=== PATIENT | female | born 1935 | race Caucasian/White ===

== ENCOUNTER → 2016-06-02 | Outpatient (CLI) | payer MEDICARE | LOC: GMAM 11:06 | PROVIDERS: ATTEND Family Medicine | DX: D64.9 Anemia, unspecified (principal); D51.9 Vitamin B12 deficiency anemia, unspecified; R31.1 Benign essential microscopic hematuria ==

== ENCOUNTER → 2016-08-22 | Outpatient (CLI) | payer MEDICARE ==
--- NOTE | 2016-08-23 07:26 | CT ---
Procedure: CT CHEST WITHOUT IV CONTRAST Exam Date: 08/22/2016 Ordering Provider: Enrico Roque Clinical Indication: DYSPNEA Comparison: 06/05/2016 chest x-ray TECHNIQUE: 5 mm images were taken through the chest without intravenous contrast material. Coronal and sagittal reformatted images were generated. This exam was performed according to our departmental dose optimization program which includes use of automated exposure control, adjustment of the mA and/or kV according to patient size and/or use of iterative reconstruction technique. FINDINGS: Lines/Tubes/Devices: None Lungs and large airways: Central airways are patent. No focal lung consolidation. No suspicious lung lesions. Scarring in the lingula and both lower lobes. Pleura: No pleural effusion. No pneumothorax. Mediastinum and neeraj: No lymphadenopathy. Heart and great vessels: Heart is not enlarged. No pericardial effusion. No aortic aneurysm. Aortic and coronary artery calcifications. Chest wall, lower neck, axillae: No axillary lymphadenopathy. Unremarkable thyroid. Upper abdomen: No acute abnormalities in the visualized upper abdomen. Hepatic cysts. Bones: Nonacute. Dextrocurvature of the thoracic spine. IMPRESSION: 1. No acute abnormalities in the chest. 2. Aortic and coronary artery calcifications. Electronically signed by: Tim Long MD 08/23/2016 7:26 AM CDT
== END | disposition home or self-care (01) ==
LOC: CT 09:18
PROVIDERS: ATTEND Internal Medicine Pulmonary Disease
DX: R06.00 Dyspnea, unspecified (principal); R06.83 Snoring; G47.11 Idiopathic hypersomnia with long sleep time

== ENCOUNTER → 2016-08-28 | Outpatient (CLI) | payer MEDICARE | END | disposition home or self-care (01) | LOC: SL 16:53 | PROVIDERS: ATTEND Internal Medicine Pulmonary Disease | DX: G47.30 Sleep apnea, unspecified (principal) ==

== ENCOUNTER → 2016-10-20 | Outpatient (CLI) | payer MEDICARE ==
--- NOTE | 2016-10-20 15:20 | MRI ---
EXAM DESCRIPTION: MRI right knee CLINICAL HISTORY: Right knee pain medially. Acute onset medial knee pain one week ago. No trauma COMPARISON: None. TECHNIQUE: Multiplanar, multisequence MR images of the right knee FINDINGS: Complex tear of the medial meniscus involving the body and posterior horn with involvement of both superior and inferior articular surfaces along the body and superior tubular surface along the posterior horn. Mild subluxation into the superior medial gutter. There is a region of trabecular condensation in the weightbearing femoral epiphysis, linear irregular over about 1.4 x 1.1 cm. Extensive surrounding marrow edema. No abnormality of the subchondral cortex. Diffuse chondral thinning medial femorotibial compartment without chronic osteochondral lesion No lateral meniscal tear or lateral femorotibial chondrosis No high-grade patellofemoral chondrosis or chronic osteochondral lesion ACL, PCL, MCL and fibular collateral ligaments are intact Biceps femoris, popliteus and iliotibial band tendons are normal. Patellar and quadriceps tendons and tendons of the posterior medial knee are intact Moderate joint effusion. Periarticular soft tissue edema. No intra-articular body IMPRESSION: Complex tear posterior horn and body medial meniscus Linear irregular trabecular condensation in the weightbearing femoral condyle epiphysis. The appearance is consistent with stress versus insufficiency fracture. This does not have the characteristic appearance of osteonecrosis. No subchondral cortical abnormality or collapse Electronically signed by: Amrik Marques MD 10/20/2016 3:18 PM CDT
== END | disposition home or self-care (01) ==
LOC: MRI 07:08
PROVIDERS: ATTEND Nurse Practitioner Family
DX: M23.221 Derangement of posterior horn of medial meniscus due to old tear or injury, right knee (principal)

== ENCOUNTER → 2016-10-27 | Outpatient (CLI) | payer MEDICARE | LOC: GMAM 10:11 | PROVIDERS: ATTEND Family Medicine | DX: D51.3 Other dietary vitamin B12 deficiency anemia (principal) ==

== ENCOUNTER → 2016-11-03 | Outpatient (CLI) | payer MEDICARE ==
--- NOTE | 2016-11-03 14:53 | RAD ---
EXAM DESCRIPTION: Femur,Right CLINICAL HISTORY: PAIN IN RT THIGH COMPARISON: None. IMPRESSION: 2 views of the right femur show diffuse osteopenia of the osseous structures with no evidence of acute fracture, focal bone destruction, or joint dislocation. Mild joint space narrowing and sclerotic changes to the superior lateral acetabulum are seen consistent with mild osteoarthritic-type changes. Small osteochondroma of the lateral distal femur is seen. Moderate vascular calcifications are identified. Electronically signed by: Denzel King MD 11/03/2016 2:52 PM CDT
== END | disposition home or self-care (01) ==
LOC: RAD 07:52
PROVIDERS: ATTEND Orthopaedic Surgery
DX: M79.651 Pain in right thigh (principal)

== ENCOUNTER → 2017-02-24 | Outpatient (CLI) | payer MEDICARE | END | disposition home or self-care (01) | LOC: GMAM 12:13 | PROVIDERS: ATTEND Family Medicine | DX: R35.0 Frequency of micturition (principal) ==

== ENCOUNTER → 2017-05-26 | Outpatient (CLI) | payer MEDICARE | LOC: GMAM 11:51 | PROVIDERS: ATTEND Family Medicine | DX: D51.9 Vitamin B12 deficiency anemia, unspecified (principal) ==

== ENCOUNTER → 2017-09-01 | Outpatient (CLI) | payer MEDICARE ==
--- NOTE | 2017-09-02 09:46 | CT ---
EXAM DESCRIPTION: CTA Neck: Computed Tomography. CLINICAL HISTORY: CAROTID ARTERY STENOSIS COMPARISON: Ultrasound carotid duplex and vertebral study 03/07/2013. TECHNIQUE: Spiral, axial 2.5 scans through the neck soft tissues after bolus infusion of IV contrast. Coronal and sagittal 2.0 mm reconstructions. 3D volume rendering images and HD MIP, rotating around the craniocaudal axis. Percentage of stenosis recorded will be based upon NASCET criteria. Total Exam DLP: 737.74 mGy-cm. This exam was performed according to our departmental CT dose-optimization program which includes automated exposure control, adjustment of the mA and/or kV according to patient size and/or use of iterative reconstruction technique; to reduce radiation dose to as low as reasonably achievable (ALARA). FINDINGS: Left common carotid origin adjacent to the right innominate artery origin. Right common carotid origin is unremarkable. Calcification and small ulceration in the anterolateral wall of the proximal ICA. Posterior calcification. 28% diameter stenosis. 22 % diameter stenosis with atherosclerotic calcification 1 cm distally. Minimal calcification distal right common carotid artery and proximal right ICA with less than 10% diameter stenosis. Both vessels demonstrate atherosclerotic calcification in the carotid siphon with almost 55% diameter stenosis on the left and 31% diameter stenosis on the right. Bilateral ICA intracranial bifurcations are unremarkable. No posterior communicating arteries are demonstrated. No aneurysm stenosis mass effect contrast extravasation or vasculitis. Bilateral vertebral arteries with unremarkable origins from the subclavian arteries. Slightly tortuous on the right. Symmetric caliber in the vertebral foramina and in the skull base. Formation of the basilar artery is unremarkable. No significant abnormalities in the major branch vessels originating from the vertebral basilar system. No aneurysm, stenosis, mass effect, or vasculitis Spondylosis in the cervical spine. Left neural foraminal stenosis at C3-4 with facet arthrosis. Bilateral neural foraminal stenosis at C4-5 and borderline canal stenosis. Right neural foraminal stenosis C5-6. Included lung torres bilaterally are unremarkable. Thyroid with uniform enhancement. No soft tissue masses in the neck or significant adenopathy included airway from the nasopharynx to the upper trachea shows no effacement or displacement. Included mastoid air cells and paranasal air cells are unremarkable. Glenny bullosa in the right middle turbinate.. IMPRESSION: 1. 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 22-28% diameter stenosis. Vascular surgical consult is recommended. Almost 55% diameter stenosis in the left carotid siphon. Less diameter stenosis in the proximal right ICA and right carotid siphon. No aneurysm mass effect or midline shift. 2. Vertebrobasilar system is unremarkable. 3. Spondylosis multiple levels of the cervical spine with neural foraminal stenosis. Correlate for radiculopathy. CRITICAL COMMUNICATION: The critical value was discussed directly by phone with Dr. Popeye Louise at approximately 938 hours, on September 02, 2017. Electronically signed by: Anthony Alfonso MD 09/02/2017 9:44 AM CDT
== END ==
LOC: CT 10:00
PROVIDERS: ATTEND Family Medicine
DX: I65.23 Occlusion and stenosis of bilateral carotid arteries (principal)

== ENCOUNTER → 2017-11-02 | Outpatient (CLI) | payer MEDICARE | LOC: GMAM 15:00 | PROVIDERS: ATTEND Physician Assistant | DX: R30.0 Dysuria (principal) ==

== ENCOUNTER → 2017-12-28 | Outpatient (CLI) | payer MEDICARE | LOC: GMAM 10:43 | PROVIDERS: ATTEND Family Medicine | DX: D51.9 Vitamin B12 deficiency anemia, unspecified (principal) ==

== ENCOUNTER → 2018-05-24 | Outpatient (CLI) | payer MEDICARE | LOC: GMAM 10:53 | PROVIDERS: ATTEND Family Medicine | DX: D51.9 Vitamin B12 deficiency anemia, unspecified (principal) ==

== ENCOUNTER → 2018-11-23 | Outpatient (CLI) | payer MEDICARE | LOC: GMAM 11:00 | PROVIDERS: ATTEND Family Medicine | DX: D51.9 Vitamin B12 deficiency anemia, unspecified (principal); I10 Essential (primary) hypertension; E11.9 Type 2 diabetes mellitus without complications; E78.2 Mixed hyperlipidemia ==

== ENCOUNTER → 2019-02-23 | Outpatient (CLI) | payer MEDICARE | LOC: GMAM 10:47 | PROVIDERS: ATTEND Family Medicine | DX: D51.9 Vitamin B12 deficiency anemia, unspecified (principal); I10 Essential (primary) hypertension; E11.9 Type 2 diabetes mellitus without complications; E78.2 Mixed hyperlipidemia ==

== ENCOUNTER → 2019-12-16 | Outpatient (CLI) | payer MEDICARE | LOC: GMAM 10:53 | PROVIDERS: ATTEND Family Medicine | DX: D51.9 Vitamin B12 deficiency anemia, unspecified (principal); I10 Essential (primary) hypertension; E11.9 Type 2 diabetes mellitus without complications ==

== ENCOUNTER → 2020-04-23 | Outpatient (CLI) | payer MEDICARE | LOC: GMAM 10:28 | PROVIDERS: ATTEND Family Medicine | DX: D51.9 Vitamin B12 deficiency anemia, unspecified (principal); E55.9 Vitamin D deficiency, unspecified; I10 Essential (primary) hypertension; E11.9 Type 2 diabetes mellitus without complications ==